=== PATIENT | female | born 1995 | race African-American/Black ===

== ENCOUNTER 2025-06-26 16:03 | Emergency (ER) | payer MEDICAID ==
[2025-06-26] MEDS: Amoxicillin/Clavulanate K 875-125 MG Tab PO ONE (17:41)
== END 2025-06-26 17:50 | disposition home or self-care (01) ==
LOC: FB.ED 16:03
DX: H60.91 Unspecified otitis externa, right ear (principal); Z88.8 Allergy status to other drugs, medicaments and biological substances; Z79.899 Other long term (current) drug therapy
CPT/HCPCS: 70450; 99283; A9270

== ENCOUNTER 2025-08-22 19:50 | Emergency (ER) | payer MEDICARE, MEDICAID ==
[2025-08-22 20:21] LABS: GLUCOSE,URINE NORMAL (NORMAL); OCCULT BLOOD,URINE NEGATIVE (NEGATIVE)
[2025-08-22 20:24] LABS: APPEARANCE,URINE SLIGHTLY CLOUDY (CLEAR); SQUAMOUS EPITHELIAL CELLS,UR FEW (NS,R,O)
[2025-08-22 21:16] LABS: BASOPHILS ABSOLUTE AUTO 0.0 x10-3/uL (0.0-0.1); BASOPHILS PERCENT AUTO 0.4 % (0.2-1.5); EOSINOPHILS ABSOLUTE AUTO 0.2 x10-3/uL (0.0-0.8); EOSINOPHILS PERCENT AUTO 2.2 % (0.6-8.1); LYMPHOCYTES ABSOLUTE AUTO 2.3 x10-3/uL (1.0-4.4); LYMPHOCYTES PERCENT AUTO 31.0 % (18.4-52.1); MEAN PLATELET VOLUME 7.1 fL (7.1-12.4); MONOCYTES ABSOLUTE AUTO 0.5 x10-3/uL (0.3-1.0); MONOCYTES PERCENT AUTO 7.2 % (4.4-15.7); NEUTROPHILS ABSOLUTE AUTO 4.4 x10-3/uL (1.5-6.3); NEUTROPHILS PERCENT AUTO 59.2 % (30.8-76.2); PLATELET COUNT,PLT 334 x10(3)uL (151-488); RED BLOOD CELL COUNT 4.64 x10(6)uL (3.60-5.20); RED CELL DISTRIBUTION WIDTH 13.4 % (12.3-16.5); WHITE BLOOD CELL COUNT,WBC 7.5 x10-3/uL (3.0-10.3)
[2025-08-22 21:17] LABS: BLOOD UREA NITROGEN,BUN 12 mg/dL (7-18); CARBON DIOXIDE,CO2 30 mmol/L (21-32); CHLORIDE,CL 104 mmol/L (100-110); CREATININE 0.8 mg/dL (0.55-1.02); ESTIMATED GFR 100 mL/min (>60); GLUCOSE RANDOM 97 mg/dL (80-116); POTASSIUM,K 3.6 mmol/L (3.5-5.3); SODIUM,NA 141 mmol/L (135-145)
[2025-08-22 21:23] LABS: A/G RATIO 0.8; ALANINE AMINOTRANSFERASE,ALT 28 U/L (12-36); ASPARTATE AMNIOTRANSFERASE,AST 19 IU/L (5-25); BILIRUBIN TOTAL 0.2 mg/dL (0.1-1.3); PROTEIN TOTAL,TP 7.3 g/dL (6.0-8.0)
== END 2025-08-22 21:58 | disposition home or self-care (01) ==
LOC: FB.ED 19:50
DX: R10.32 Left lower quadrant pain (principal); R79.82 Elevated C-reactive protein (CRP); Z88.8 Allergy status to other drugs, medicaments and biological substances; Z79.899 Other long term (current) drug therapy
CPT/HCPCS: 36415; 80053; 81001; 81025; 85025; 86140; 99284

== ENCOUNTER 2025-08-25 18:39 | Emergency (ER) | payer MEDICARE, MEDICAID ==
[2025-08-25 19:51] LABS: BASOPHILS ABSOLUTE AUTO 0.0 x10-3/uL (0.0-0.1); BASOPHILS PERCENT AUTO 0.6 % (0.2-1.5); EOSINOPHILS ABSOLUTE AUTO 0.2 x10-3/uL (0.0-0.8); EOSINOPHILS PERCENT AUTO 2.7 % (0.6-8.1); LYMPHOCYTES ABSOLUTE AUTO 2.2 x10-3/uL (1.0-4.4); LYMPHOCYTES PERCENT AUTO 33.3 % (18.4-52.1); MEAN PLATELET VOLUME 7.0 fL (7.1-12.4); MONOCYTES ABSOLUTE AUTO 0.4 x10-3/uL (0.3-1.0); MONOCYTES PERCENT AUTO 6.5 % (4.4-15.7); NEUTROPHILS ABSOLUTE AUTO 3.7 x10-3/uL (1.5-6.3); NEUTROPHILS PERCENT AUTO 56.9 % (30.8-76.2); PLATELET COUNT,PLT 331 x10(3)uL (151-488); RED BLOOD CELL COUNT 4.67 x10(6)uL (3.60-5.20); RED CELL DISTRIBUTION WIDTH 13.1 % (12.3-16.5); WHITE BLOOD CELL COUNT,WBC 6.5 x10-3/uL (3.0-10.3)
[2025-08-25 19:57] LABS: BLOOD UREA NITROGEN,BUN 13 mg/dL (7-18); CARBON DIOXIDE,CO2 30 mmol/L (21-32); CHLORIDE,CL 101 mmol/L (100-110); CREATININE 0.8 mg/dL (0.55-1.02); EST CRCL DRUG DOSING (CG) 87.18 mL/min; ESTIMATED GFR 100 mL/min (>60); GLUCOSE RANDOM 108 mg/dL (80-116); POTASSIUM,K 3.9 mmol/L (3.5-5.3); SODIUM,NA 138 mmol/L (135-145)
[2025-08-25 20:03] LABS: A/G RATIO 0.8; ALANINE AMINOTRANSFERASE,ALT 26 U/L (12-36); ASPARTATE AMNIOTRANSFERASE,AST 15 IU/L (5-25); BILIRUBIN TOTAL 0.2 mg/dL (0.1-1.3); PROTEIN TOTAL,TP 7.0 g/dL (6.0-8.0)
[2025-08-25 20:24] LABS: GLUCOSE,URINE NORMAL (NORMAL); OCCULT BLOOD,URINE NEGATIVE (NEGATIVE)
[2025-08-25 20:32] LABS: APPEARANCE,URINE SLIGHTLY CLOUDY (CLEAR)
[2025-08-25 20:33] LABS: SQUAMOUS EPITHELIAL CELLS,UR FEW (NS,R,O)
== END 2025-08-25 20:44 | disposition home or self-care (01) ==
LOC: FB.ED 18:39
DX: R10.A1 Flank pain, right side (principal); E66.9 Obesity, unspecified; Z68.37 Body mass index [BMI] 37.0-37.9, adult; Z88.8 Allergy status to other drugs, medicaments and biological substances
CPT/HCPCS: 36415; 74176; 80053; 81001; 85025; 99284